=== PATIENT | female | born 1980 | race African-American/Black ===

== ENCOUNTER 2016-11-21 10:17 | Outpatient (CLI) | payer OTHER ==
[2016-11-21 10:41] LABS: #Basophils 0.1 thou/uL (0.0-0.2); #Eosinphils 0.1 thou/uL (0.0-0.7); #Monocytes 0.4 thou/uL (0.11-0.59); #Neutrophils 2.8 thou/uL (1.40-6.50); %Basophils 1.4 % (0.0-1.0); %Eosinophils 2.3 % (0.0-10.0); %Lymphocytes 36.4 % (21.0-51.0); %Monocytes 6.8 % (0.0-10.0); %Neutrophils 53.1 % (42.0-75.0); Hemoglobin 12.3 g/dL (12.0-16.0); Mean Corpuscular HGB CONC 31.4 g/dL (32.0-36.0); Mean Corpuscular Hemoglobin 28.1 pg (27.0-31.0); Mean Corpuscular Volume 89.7 fl (81.0-99.0); Platelet Count 288 thou/uL (130-400); Red Blood Cell (RBC) Count 4.37 mill/uL (4.20-5.40); White Blood Cell (WBC) Count 5.3 thou/uL (4.8-10.8)
[2016-11-21 10:56] LABS: Hemoglobin A1c 5.2 % (4.0-6.0)
[2016-11-21 11:11] LABS: ALT (SGPT) 10 U/L (0-55); AST (SGOT) 14 U/L (5-34); Albumin 4.1 g/dL (3.5-5.0); Alkaline Phosphatase 46 U/L (40-150); Anion Gap 10 mmol/L (10-20); BUN (Urea Nitrogen) 16 mg/dL (7.0-18.7); Bilirubin, Total 0.3 mg/dL (0.2-1.2); Calc. Creatinine Clearance 0 mL/min (70-130); Carbon Dioxide 24 mmol/L (22-29); Cardiac Risk 3.1 (Less than 4.5); Chloride 108 mmol/L (98-107); Cholesterol 195 mg/dL (< 200 Desired); Estimated GFR-MDRD Greater than 90; Globulin 3.1 g/dL (2.4-3.5); Glucose 95 mg/dL (70-105); HDL Cholesterol 63 mg/dL (>60 Neg Risk); LDL Cholesterol, Calculated 123 mg/dL; Potassium 4.1 mmol/L (3.5-5.1); Protein, Total 7.2 g/dL (6.0-8.3); Sodium 138 mmol/L (136-145); Triglycerides 43 mg/dL (Less than 150)
[2016-11-21 12:03] LABS: Thyroid Stimulating Hormone 1.5472 uIU/mL (0.35-4.94); Vitamin D, 25 Hydroxy 13.6 ng/mL (> 30.0)
== END 2016-11-21 10:18 | disposition home or self-care (01) ==
LOC: MADLABBHPM 10:17
PROVIDERS: ATTEND Family Medicine
DX: Z00.00 Encounter for general adult medical examination without abnormal findings (principal)
CPT/HCPCS: 36415; 80053; 80061; 82306; 83036; 84443; 85025

== ENCOUNTER 2017-07-31 16:04 | Outpatient (CLI) | payer OTHER ==
--- NOTE | 2017-07-31 16:38 | RAD ---
LEFT HIP TWO VIEWS 07/31/17 HISTORY: Hip pain. Minimal arthritic changes of the hip joint are seen with some tiny spurs at the femoral head and neck junction. No joint space narrowing or fracture. IMPRESSION: Minimal arthritic changes of the hip. POS: ROXY
--- NOTE | 2017-07-31 16:39 | RAD ---
LUMBAR SPINE TWO VIEWS: 07/31/17 HISTORY: Back pain with sciatica. Vertebral bodies are normal in height. Disc spaces appear well preserved. Pedicles are intact. IMPRESSION: Unremarkable lumbar spine series. POS: ROXY
== END 2017-07-31 16:05 | disposition home or self-care (01) ==
LOC: MADRAD 16:04
PROVIDERS: ATTEND Family Medicine
DX: M54.32 Sciatica, left side (principal); M25.552 Pain in left hip
CPT/HCPCS: 72100

== ENCOUNTER 2018-06-11 12:58 | Emergency (ER) | payer OTHER | END 2018-06-11 13:38 | disposition home or self-care (01) | LOC: MADERS 12:58 | DX: M25.512 Pain in left shoulder (principal) | CPT/HCPCS: 99281 ==